=== PATIENT | female | born 1970 | race Caucasian/White ===

== ENCOUNTER 2017-06-19 08:52 | Inpatient (IN) | payer MEDICAID ==
[2017-06-19] VITALS (10 sets, daily range): BP systolic 89–103; BP diastolic 43–68; PULSE 89–104; RESP 16–20; TEMP 98.3–100.8; O2SAT 95–100
[~2017-06-19] VITALS: Ht 162.6 cm; Wt 69.3 kg
[~2017-06-19 08:52] MED LIST: PERC10TA27 PO
[2017-06-19] MEDS ORDERED: SODIUM CHLOR 0.9% 1000 ML INJ 1,000 ML IV SCH (09:23)
[2017-06-19] MEDS ORDERED: KETOROLAC TROMETHAMINE 30 MG/ML (IVP) VIAL IVP ONE (09:30)
[2017-06-19] MEDS ORDERED: SODIUM CHLORIDE 0.9% FLUSH 10 ML FLUSH IV FLUSH PRN ×2 (09:30→15:30)
[2017-06-19 09:44] LABS: AUTOMATED NEUTROPHIL # 21.3 TH/MM3 (1.8-7.7); BASOPHIL # 0.1 TH/MM3 (0-0.2); BASOPHIL % 0.4 % (0.0-2.0); HEMATOCRIT 38.4 % (35.0-46.0); LYMPH % 3.2 % (9.0-44.0); LYMPHOCYTE # 0.7 TH/MM3 (1.0-4.8); MEAN CELL VOLUME 84.7 FL (80.0-100.0); MEAN CORPUSCULAR HEMOGLOBIN 28.3 PG (27.0-34.0); MEAN CORPUSCULAR HGB CONC 33.4 % (32.0-36.0); MONO % 3.2 % (0.0-8.0); NEUT % 93.2 % (16.0-70.0); PLATELET COUNT 231 TH/MM3 (150-450); RED BLOOD COUNT 4.53 MIL/MM3 (4.00-5.30); WHITE BLOOD COUNT 22.8 TH/MM3 (4.0-11.0)
[2017-06-19 09:48] LABS: HEMO FLAGS DIFF FINAL
--- NOTE | 2017-06-19 09:48 | PD ---
HPI Chief Complaint: General Weakness Time Seen by Provider: 09:05 Travel History International Travel<30 days: No Contact w/Intl Traveler<30days: No Traveled to known affect area: No History of Present Illness HPI Patient is a 46-year-old female presents emergency Department with generalized fatigue, sharp stinging sensation throughout her entire body. She states it started this morning. She has been known to use amphetamines in the past but states she's been clean for 6 months. Denies any fever, she does also endorse some nausea and vomiting and diarrhea but denies any abdominal pain. States symptoms are moderate, gradually worsening, cannot identify any alleviating or exacerbating factors. PFSH Past Medical History Hx Anticoagulant Therapy: No Cancer: No Cardiovascular Problems: No Diabetes: No Diminished Hearing: No Endocrine: No Genitourinary: No Immune Disorder: No Musculoskeletal: No Neurologic: No Psychiatric: No Respiratory: No Immunizations Current: Yes Tetanus Vaccination: Unknown ?: Not Menopausal: Yes : 3 Para: 3 Past Surgical History Other Surgery: No Social History Alcohol Use: No Tobacco Use: Yes (1 PPD) Substance Use: Yes (METHAMPHETAMINES, BARBITUATES, AMPHETAMINES, PAIN PILLS) Allergies-Medications (Allergen,Severity, Reaction): Coded Allergies: No Known Allergies (Unverified , 06/10/16) Reported Meds & Prescriptions Reported Meds & Active Scripts Active Review of Systems Except as stated in HPI: all other systems reviewed are Neg Physical Exam Narrative GENERAL: Well-developed well-nourished, no obvious distress. SKIN: Focused skin assessment warm/dry. Decreased skin turgor. HEAD: Atraumatic. Normocephalic. EYES: Pupils equal and round. No scleral icterus. No injection or drainage. ENT: No nasal bleeding or discharge. Mucous membranes pink and dry. NECK: Trachea midline. No JVD. CARDIOVASCULAR: Regular rhythm with mild tachycardia.. No murmur appreciated. 2+ but equal pulses in all 4 extremities. RESPIRATORY: No accessory muscle use. Clear to auscultation. Breath sounds equal bilaterally. GASTROINTESTINAL: Abdomen soft, non-tender, nondistended. Hepatic and splenic margins not palpable. MUSCULOSKELETAL: No obvious deformities. No clubbing. No cyanosis. No edema. NEUROLOGICAL: Awake and alert. No obvious cranial nerve deficits. Motor grossly within normal limits. Normal speech. PSYCHIATRIC: Appropriate mood and affect; insight and judgment normal. Data Data Last Documented VS Vital Signs Date Time Temp Pulse Resp B/P (MAP) Pulse Ox O2 Delivery O2 Flow Rate FiO2 06/19/17 14:36 98 18 97/51 (66) 98 Room Air 06/19/17 13:58 98.8 Orders Orders Complete Blood Count With Diff (06/19/17 09:23) Comprehensive Metabolic Panel (06/19/17:23) Urinalysis - C+S If Indicated (06/19/17:23) Iv Access Insert/Monitor (06/19/17:23) Ecg Monitoring (06/19/17:23) Oximetry (06/19/17:23) Sodium Chlor 0.9% 1000 Ml Inj (Ns 1000 M (06/19/17 09:23) Sodium Chloride 0.9% Flush (Ns Flush) (06/19/17 09:30) Ketorolac Inj (Toradol Inj) (06/19/17 09:30) Ed Urine Pregnancytest Poc (06/19/17 09:23) Influenzae A/B Antigen (06/19/17 09:23) Chest, Single Ap (06/19/17 ) Cath For Specimen (06/19/17 11:20) Lactic Acid (06/19/17 11:30) Sodium Chlor 0.9% 1000 Ml Inj (Ns 1000 M (06/19/17 11:30) Creatine Kinase (Cpk) (06/19/17 11:48) Ct Abd/Pel W Iv Contrast(Rout) (06/19/17 ) Sodium Chlor 0.9% 1000 Ml Inj (Ns 1000 M (06/19/17 13:45) Iohexol 350 Inj (Omnipaque 350 Inj) (06/19/17 14:30) Ciprofloxacin 400 Mg Premix (Cipro 400 M (06/19/17 15:00) Metronidazole 500 Mg Inj (Flagyl 500 Mg (06/19/17 16:00) Blood Culture (06/19/17 15:02) Admit Order (Ed Use Only) (06/19/17 ) Labs Laboratory Tests Test 06/19/17 09:30 06/19/17 11:15 06/19/17 11:35 White Blood Count 22.8 TH/MM3 Red Blood Count 4.53 MIL/MM3 Hemoglobin 12.9 GM/DL Hematocrit 38.4 % Mean Corpuscular Volume 84.7 FL Mean Corpuscular Hemoglobin 28.3 PG Mean Corpuscular Hemoglobin Concent 33.4 % Red Cell Distribution Width 13.0 % Platelet Count 231 TH/MM3 Mean Platelet Volume 8.4 FL Neutrophils (%) (Auto) 93.2 % Lymphocytes (%) (Auto) 3.2 % Monocytes (%) (Auto) 3.2 % Eosinophils (%) (Auto) 0.0 % Basophils (%) (Auto) 0.4 % Neutrophils # (Auto) 21.3 TH/MM3 Lymphocytes # (Auto) 0.7 TH/MM3 Monocytes # (Auto) 0.7 TH/MM3 Eosinophils # (Auto) 0.0 TH/MM3 Basophils # (Auto) 0.1 TH/MM3 CBC Comment DIFF FINAL Differential Comment Blood Urea Nitrogen 16 MG/DL Creatinine 0.80 MG/DL Random Glucose 104 MG/DL Total Protein 6.5 GM/DL Albumin 3.3 GM/DL Calcium Level 8.0 MG/DL Alkaline Phosphatase 68 U/L Aspartate Amino Transf (AST/SGOT) 13 U/L Alanine Aminotransferase (ALT/SGPT) 23 U/L Total Bilirubin 0.5 MG/DL Sodium Level 134 MEQ/L Potassium Level 3.7 MEQ/L Chloride Level 101 MEQ/L Carbon Dioxide Level 25.5 MEQ/L Anion Gap 8 MEQ/L Estimat Glomerular Filtration Rate 78 ML/MIN Total Creatine Kinase 48 U/L Urine Collection Type CLEAN CATCH Urine Color YELLOW Urine Turbidity CLEAR Urine pH 5.5 Urine Specific [place] 1.007 Urine Protein NEG mg/dL Urine Glucose (UA) NEG mg/dL Urine Ketones NEG mg/dL Urine Occult Blood NEG Urine Nitrite NEG Urine Bilirubin NEG Urine Leukocyte Esterase TRACE Urine WBC 3-5 /hpf Urine Squamous Epithelial Cells > 8 /hpf Urine Bacteria OCC /hpf Microscopic Urinalysis Comment CULT NOT INDICATED Urine Collection Time 11:15 Lactic Acid Level 2.0 mmol/L MDM Medical Decision Making Medical Screen Exam Complete: Yes Emergency Medical Condition: Yes Differential Diagnosis Dehydration, acute kidney injury, electro-light abnormality, UTI, pneumonia, acute abdomen seems unlikely. Narrative Course Patient is a 46-year-old female roomed in the emergency department, mildly hypotensive appears dehydrated. Complains of generalized body aches. Given Toradol and normal saline, her labs show white count of 22,000, she's remained afebrile in the emergency part. I had been complaining of some nausea vomiting and diarrhea. Chest x-ray negative, UA negative. Decision was made to pursue CAT scan looking for source of white count at 20,000. She is given an additional liter fluid still with some persistent hypotension which is mild and she appears to be perfusing all of her tissues adequately. Her CAT scan does reveal some diffuse colitis. She was started on Cipro and Flagyl and discussed with Dr. Hair for admission for sepsis secondary to colitis. Diagnosis Primary Impression: Moderate dehydration Additional Impressions: Sepsis Colitis Admitting Information Admitting Physician Requests: Admit Scripts No Active Prescriptions or Reported Meds Condition: Dionisio Wesley MD Jun 19, 2017 09:48
[2017-06-19 09:54] LABS: BICARBONATE 25.5 MEQ/L (21.0-32.0); BLOOD UREA NITROGEN 16 MG/DL (7-18)
[2017-06-19 09:56] LABS: ALT (GPT) 23 U/L (10-53); ANION GAP 8 MEQ/L (5-15); CHLORIDE 101 MEQ/L (98-107); POTASSIUM 3.7 MEQ/L (3.5-5.1); SODIUM (NA) 134 MEQ/L (136-145)
[2017-06-19 09:57] LABS: AST (GOT) 13 U/L (15-37); GLOMERULAR FILTRATION RATE 78 ML/MIN (>89); TOTAL BILIRUBIN ADULT 0.5 MG/DL (0.2-1.0)
[2017-06-19 10:00] LABS: ALKALINE PHOSPHATASE 68 U/L (45-117)
--- NOTE | 2017-06-19 10:48 | RADRPT ---
EXAM DATE/TIME: 06/19/2017 10:21 [facility] COMPARISON: RIBS LEFT(W PA CXR MIN 3VWS), May 17, 2016, 5:02. INDICATIONS : Diarrhea and body aches. MEDICAL HISTORY : None. SURGICAL HISTORY : None. ENCOUNTER: Initial ACUITY: 1 day PAIN SCORE: 3/10 LOCATION: Bilateral chest FINDINGS: A single view of the chest demonstrates the lungs to be symmetrically aerated without evidence of mas s, infiltrate or effusion. The cardiomediastinal contours are unremarkable. Osseous structures are intact. CONCLUSION: 1. No acute cardiopulmonary disease. Wilmer Wong MD on June 19, 2017 at 10:46 Board Certified Radiologist. This report was verified electronically.
[2017-06-19 11:30] LABS: BLOOD, URINE NEG (NEG); GLUCOSE,URINE NEG (NEG); KETONE, URINE NEG (NEG); NITRITE,URINE NEG (NEG); PH, URINE 5.5 (5.0-8.5)
[2017-06-19] MEDS ORDERED: SODIUM CHLOR 0.9% 1000 ML INJ 1,000 ML IV ONE (11:30)
[2017-06-19 11:35] LABS: METHOD OF COLLECTION CLEAN CATCH
[2017-06-19 11:36] LABS: BACTERIA, URINE OCC /hpf; SQUAMOUS EPITHELIAL CELL URINE > 8 /hpf (0-5); URINE COLOR YELLOW (YELLW/STRAW)
[2017-06-19 13:14] LABS: COMMENT (UR) CULT NOT INDICATED; CULTURE IF INDICATED CULT NOT INDICATED
[2017-06-19] MEDS: SODIUM CHLOR 0.9% 1000 ML INJ 1,000 ML IV SCH ×2 (13:55→21:45)
--- NOTE | 2017-06-19 14:29 | RADRPT ---
EXAM DATE/TIME: 06/19/2017 14:05 [facility] COMPARISON: No previous studies available for comparison. INDICATIONS : Abdominal pain, diarrhea. IV CONTRAST: 96 cc Omnipaque 350 (iohexol) IV ORAL CONTRAST: No oral contrast ingested. RADIATION DOSE: 8.57 CTDIvol (mGy) MEDICAL HISTORY : Substance abuse.Attempted suiside x 2 SURGICAL HISTORY : Left Knee ENCOUNTER: Initial ACUITY: 1 day PAIN SCALE: 7/10 LOCATION: Bilateral abdominal. TECHNIQUE: Volumetric scanning of the abdomen and pelvis was performed. Using automated exposure control and ad justment of the mA and/or kV according to patient size, radiation dose was kept as low as reasonably achievable to obtain optimal diagnostic quality images. DICOM format image data is available electro nically for review and comparison. FINDINGS: LOWER LUNGS: Mild posterior basilar atelectasis LIVER: Homogeneous density without lesion. There is no dilation of the biliary tree. No calcified gallston es. SPLEEN: Normal size without lesion. PANCREAS: Within normal limits. KIDNEYS: Normal in size and shape. There is no mass, stone or hydronephrosis. ADRENAL GLANDS: Within normal limits. VASCULAR: There is no aortic aneurysm. BOWEL/MESENTERY: There is mild-moderate concentric wall thickening involving the colon, beginning in the proximal cantu sverse colon and continuing through to the rectum. The appearance would be consistent with diffuse co litis. There is mild fluid and gaseous distention of small bowel which may reflect adynamic ileus ABDOMINAL WALL: Within normal limits. RETROPERITONEUM: There is no lymphadenopathy. BLADDER: No wall thickening or mass. REPRODUCTIVE: Within normal limits. INGUINAL: There is no lymphadenopathy or hernia. MUSCULOSKELETAL: Within normal limits for patient age. CONCLUSION: Diffuse colitis. Mild ileus. Harish Louise MD on June 19, 2017 at 14:23 Board Certified Radiologist. This report was verified electronically.
[2017-06-19] MEDS ORDERED: IOHEXOL 350 MG/ML 10 ML VIAL (for RAD DIAG) IVCONTRAST ONE (14:30)
[2017-06-19] MEDS ORDERED: CIPROFLOXACIN 400 MG PREMIX 200 ML IV ONE (15:00)
[2017-06-19] MEDS ORDERED: metroNIDAZOLE 500 MG INJ 100 ML IV ONE (16:00)
[2017-06-19] MEDS ORDERED: ACETAMINOPHEN 325 MG TAB PO PRN (17:00)
[2017-06-19] MEDS ORDERED: KETOROLAC TROMETHAMINE 30 MG/ML (IVP) VIAL IV PUSH PRN (17:00)
--- NOTE | 2017-06-19 17:07 | HHI.HP ---
[facility] Unknown Admission Diagnosis Sepsis, Colitis, Ileus. Diagnoses: Chief Complaint: Abdominal pain Travel History International Travel<30 Days: No Contact w/Intl Traveler <30 Da: No Traveled to Known Affected Are: No History of Present Illness Patient very healthy 46-year-old female who admits about a week of abdominal discomfort and 3 days of worsening symptoms of malaise, pain and diarrhea. She notes no bloody diarrhea but had loose watery stools. There is no recent travel. The pain is severe. She tried taking Tylenol at home without relief. It has been improving here with IV Toradol. She did take antibiotics for the last couple of weeks for a tooth infection. She notes no recent hospitalizations and no other medications. Here she has been found to be hypotensive, tachycardic and with leukocytosis. Imaging confirms colitis and the patient's been admitted for severe colitis with sepsis. Review of Systems Constitutional: COMPLAINS OF: Fatigue, Fever (subjective), Weight loss, Change in appetite, DENIES: Diaphoretic episodes, Weight gain, Chills, Dizziness, Night Sweats Endocrine: DENIES: Abnorml menstrual pattern, Heat/cold intolerance, Polydipsia , Polyuria, Polyphagia Eyes: DENIES: Blurred vision, Diplopia, Eye inflammation, Eye pain, Vision loss , Photosensitivity, Double Vision Ears, nose, mouth, throat: DENIES: Tinnitus, Hearing loss, Vertigo, Nasal discharge, Oral lesions, Throat pain, Hoarseness, Ear Pain, Running Nose, Epistaxis, Sinus Pain, Toothache, Odynophagia Respiratory: DENIES: Apneas, Cough, Snoring, Wheezing, Hemoptysis, Sputum production, Shortness of breath Cardiovascular: DENIES: Chest pain, Palpitations, Syncope, Dyspnea on Exertion , PND, Lower Extremity Edema, Orthopnea, Claudication Gastrointestinal: COMPLAINS OF: Abdominal pain, Diarrhea, Nausea, Vomiting Genitourinary: DENIES: Abnormal vaginal bleeding, Dysmenorrhea, Dyspareunia, Sexual dysfunction, Urinary frequency, Urinary incontinence, Urgency, Hematuria , Dysuria, Nocturia, Vaginal discharge Musculoskeletal: DENIES: Joint pain, Muscle aches, Stiffness, Joint Swelling, Back pain, Neck pain Integumentary: DENIES: Abnormal pigmentation, Pruritus, Rash, Nail changes, Breast masses, Breast skin changes, Nipple discharge Hematologic/lymphatic: DENIES: Bruising, Lymphadenopathy Neurologic: DENIES: Abnormal gait, Headache, Localized weakness, Paresthesias, Seizures, Speech Problems, Tremor, Poor Balance Except as stated in HPI: all other systems reviewed are Neg Past Family Social History Past Medical History Denies Past Surgical History Denies Reported Medications Reviewed in the EMR Allergies: Coded Allergies: No Known Allergies (Unverified , 06/10/16) Active Ordered Medications Reviewed in the EMR Family History No family history of implanted bowel disease, mother is alive and well, father from melanoma, grandmother had colon cancer Social History History of polysubstance abuse but has been sober for some time No tobacco or alcohol 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 Physical Exam Vital Signs Vital Signs Date Time Temp Pulse Resp B/P (MAP) Pulse Ox O2 Delivery O2 Flow Rate FiO2 06/19/17 16:15 99.3 89 20 97/68 (78) 95 06/19/17 15:47 06/19/17 15:29 93 16 92/46 (61) 99 Room Air 06/19/17 14:36 98 18 97/51 (66) 98 Room Air 06/19/17 13:58 98.8 92 16 90/43 (59) 98 Room Air 06/19/17 13:00 92 18 91/49 (63) 99 Room Air 06/19/17 11:12 98 18 89/62 (71) 100 Room Air 06/19/17 09:43 98 06/19/17 09:01 104 16 98 Room Air 06/19/17 08:59 98.3 104 16 98/48 (65) 98 Physical Exam GENERAL: This is a well-nourished, well-developed patient, was calm but appears ill SKIN: No rashes, ecchymoses or lesions. Cool and dry. HEAD: Atraumatic. Normocephalic. No temporal or scalp tenderness. EYES: Pupils equal round and reactive. Extraocular motions intact. No scleral icterus. No injection or drainage. ENT: Nose without bleeding, purulent drainage or septal hematoma. Throat without erythema, tonsillar hypertrophy or exudate. Uvula midline. Airway patent. NECK: Trachea midline. No JVD or lymphadenopathy. Supple, nontender, no meningeal signs. CARDIOVASCULAR: Regular rate and rhythm without murmurs, gallops, or rubs. RESPIRATORY: Clear to auscultation. Breath sounds equal bilaterally. No wheezes , rales, or rhonchi. GASTROINTESTINAL: Abdomen soft, diffusely tender, diffusely distended, hyperactive bowel sounds. No hepato-splenomegaly, or palpable masses. No guarding. MUSCULOSKELETAL: Extremities without clubbing, cyanosis, or edema. No joint tenderness, effusion, or edema noted. No calf tenderness. Negative Homans sign bilaterally. NEUROLOGICAL: Awake and alert. Cranial nerves II through XII intact. Motor and sensory grossly within normal limits. Five out of 5 muscle strength in all muscle groups. Normal speech. Laboratory Laboratory Tests Test 06/19/17 09:30 06/19/17 11:15 06/19/17 11:35 White Blood Count 22.8 Red Blood Count 4.53 Hemoglobin 12.9 Hematocrit 38.4 Mean Corpuscular Volume 84.7 Mean Corpuscular Hemoglobin 28.3 Mean Corpuscular Hemoglobin Concent 33.4 Red Cell Distribution Width 13.0 Platelet Count 231 Mean Platelet Volume 8.4 Neutrophils (%) (Auto) 93.2 Lymphocytes (%) (Auto) 3.2 Monocytes (%) (Auto) 3.2 Eosinophils (%) (Auto) 0.0 Basophils (%) (Auto) 0.4 Neutrophils # (Auto) 21.3 Lymphocytes # (Auto) 0.7 Monocytes # (Auto) 0.7 Eosinophils # (Auto) 0.0 Basophils # (Auto) 0.1 CBC Comment DIFF FINAL Differential Comment Blood Urea Nitrogen 16 Creatinine 0.80 Random Glucose 104 Total Protein 6.5 Albumin 3.3 Calcium Level 8.0 Alkaline Phosphatase 68 Aspartate Amino Transf (AST/SGOT) 13 Alanine Aminotransferase (ALT/SGPT) 23 Total Bilirubin 0.5 Sodium Level 134 Potassium Level 3.7 Chloride Level 101 Carbon Dioxide Level 25.5 Anion Gap 8 Estimat Glomerular Filtration Rate 78 Total Creatine Kinase 48 Urine Collection Type CLEAN CATCH Urine Color YELLOW Urine Turbidity CLEAR Urine pH 5.5 Urine Specific [place] 1.007 Urine Protein NEG Urine Glucose (UA) NEG Urine Ketones NEG Urine Occult Blood NEG Urine Nitrite NEG Urine Bilirubin NEG Urine Leukocyte Esterase TRACE Urine WBC 3-5 Urine Squamous Epithelial Cells > 8 Urine Bacteria OCC Microscopic Urinalysis Comment CULT NOT INDICATED Urine Collection Time 11:15 Lactic Acid Level 2.0 Date/Time Source Procedure Growth Status 06/19/17 11:42 Blood Peripheral Aerobic Blood Culture Pending Received 06/19/17 11:42 Blood Peripheral Anaerobic Blood Culture Pending Received 06/19/17 09:34 Nasal Washing Influenza Types A,B Antigen (OLIVA) - Final NEGATIVE FOR FLU A AND B ANTIGEN.... Complete Result Diagram: 06/19/1730 06/19/1730 Imaging Last Impressions Chest X-Ray 06/19/17 0000 Signed Impressions: Service Date/Time: Monday, June 19, 2017 10:21 - CONCLUSION: 1. No acute cardiopulmonary disease. Wilmer Wong MD Abdomen/Pelvis CT 06/19/17 0000 Signed Impressions: Service Date/Time: Monday, June 19, 2017 14:05 - CONCLUSION: Diffuse colitis. Mild ileus. Harish Louise MD Septic Shock Reassessment Heart: Regular rate and rhythm Lungs: Clear Skin: Warm Caprini VTE Risk Assessment Caprini VTE Risk Assessment: Mod/High Risk (score >= 2) Caprini Risk Assessment Model Point Value = 1 Point Value = 2 Point Value = 3 Point Value = 5 Age 41-60 Minor surgery BMI > 25 kg/m2 Swollen legs Varicose veins or History of unexplained or recurrent spontaneous Oral contraceptives or hormone replacement Sepsis (< 1 month) Serious lung disease, including pneumonia (< 1 month) Abnormal pulmonary function Acute myocardial infarction Congestive heart failure (< 1 month) History of inflammatory bowel disease Medical patient at bed rest Age 61-74 Arthroscopic surgery Major open surgery (> 45 min) Laparoscopic surgery (> 45 min) Malignancy Confined to bed (> 72 hours) Immobilizing plaster cast Central venous access Age >= 75 History of VTE Family history of VTE Factor V Leiden Prothrombin [id number] Lupus anticoagulant Anticardiolipin antibodies Elevated serum homocysteine Heparin-induced thrombocytopenia Other congenital or acquired thrombophilia Stroke (< 1 month) Elective arthroplasty Hip, pelvis, or leg fracture Acute spinal cord injury (< 1 month) Prophylaxis Regimen Total Risk Factor Score Risk Level Prophylaxis Regimen 0-1 Low Early ambulation 2 Moderate Order ONE of the following: *Sequential Compression Device (SCD) *Heparin 5000 units SQ BID 3-4 Higher Order ONE of the following medications: *Heparin 5000 units SQ TID *Enoxaparin/Lovenox 40 mg SQ daily (WT < 150 kg, CrCl > 30 mL/min) *Enoxaparin/Lovenox 30 mg SQ daily (WT < 150 kg, CrCl > 10-29 mL/min) *Enoxaparin/Lovenox 30 mg SQ BID (WT < 150 kg, CrCl > 30 mL/min) AND/OR *Sequential Compression Device (SCD) 5 or more Highest Order ONE of the following medications: *Heparin 5000 units SQ TID (Preferred with Epidurals) *Enoxaparin/Lovenox 40 mg SQ daily (WT < 150 kg, CrCl > 30 mL/min) *Enoxaparin/Lovenox 30 mg SQ daily (WT < 150 kg, CrCl > 10-29 mL/min) *Enoxaparin/Lovenox 30 mg SQ BID (WT < 150 kg, CrCl > 30 mL/min) AND *Sequential Compression Device (SCD) Assessment and Plan Problem List: (1) Colitis ICD Code: K52.9 - Noninfective gastroenteritis and colitis, unspecified Plan: With sepsis (elevated white cell count, hypotension, elevated heart rate) Empiric Flagyl, Cipro, add oral vancomycin due to severity and high suspicion for C. difficile C. 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 In the case of services not specified as inpatient-only, they are appropriately provided as inpatient services in accordance with the 2-midnight benchmark. Estimated LOS (days): 3 3 days is the estimated time the patient will need to remain in the hospital, assuming treatment plan goals are met and no additional complications. Post-Hospital Plan: Shannon Jones MD Jun 19, 2017 17:07
[2017-06-19] MEDS ORDERED: ONDANSETRON HCL 4 MG/2 ML VIAL IV PUSH PRN (17:15)
[2017-06-19] MEDS: ENOXAPARIN SODIUM 40 MG/0.4 ML SYRINGE SQ SCH (17:28)
[2017-06-19] MEDS: VANCOMYCIN 500 MG VIAL (FOR ORAL USE ONLY) PO SCH ×2 (17:30→20:57)
[2017-06-19] MEDS: MORPHINE SULFATE 2 MG/ML INJ IV PUSH PRN (17:36)
[2017-06-19] MEDS: SODIUM CHLORIDE 0.9% FLUSH 10 ML FLUSH IV FLUSH SCH (20:58)
[2017-06-20] MEDS: MORPHINE SULFATE 2 MG/ML INJ IV PUSH PRN ×2 (02:58→09:44)
[2017-06-20 03:22] VITALS: BP 105/70; PULSE 88; RESP 18; TEMP 98.7; O2SAT 97
[2017-06-20] MEDS: SODIUM CHLOR 0.9% 1000 ML INJ 1,000 ML IV SCH ×2 (05:34→15:50)
[2017-06-20 07:20] LABS: POTASSIUM 3.7 MEQ/L (3.5-5.1)
[2017-06-20 07:23] LABS: AUTOMATED NEUTROPHIL # 9.6 TH/MM3 (1.8-7.7); BASOPHIL % 0.1 % (0.0-2.0); EOSINOPHIL % 0.1 % (0.0-4.0); HEMATOCRIT 35.3 % (35.0-46.0); HEMO FLAGS DIFF FINAL; LYMPHOCYTE # 1.2 TH/MM3 (1.0-4.8); MEAN CELL VOLUME 83.4 FL (80.0-100.0); MEAN CORPUSCULAR HEMOGLOBIN 27.5 PG (27.0-34.0); MONO % 3.2 % (0.0-8.0); NEUT % 85.6 % (16.0-70.0); PLATELET COUNT 196 TH/MM3 (150-450); RED BLOOD COUNT 4.23 MIL/MM3 (4.00-5.30); RED CELL DISTRIBUTION WIDTH 13.3 % (11.6-17.2); WHITE BLOOD COUNT 11.2 TH/MM3 (4.0-11.0)
[2017-06-20 07:24] LABS: BICARBONATE 24.7 MEQ/L (21.0-32.0)
[2017-06-20] MEDS: VANCOMYCIN 500 MG VIAL (FOR ORAL USE ONLY) PO SCH ×4 (09:50→21:03)
[2017-06-20] MEDS: SODIUM CHLORIDE 0.9% FLUSH 10 ML FLUSH IV FLUSH SCH ×2 (09:55→21:04)
--- NOTE | 2017-06-20 10:53 | HHI.PR ---
Subjective Remarks Patient seen and evaluated follow-up for colitis. Tolerated antibiotics. Had some loose stools which are pending for C. difficile. Complaining of abdominal pain and leg pain today. Ambulatory without difficulty. Abdominal discomfort is improved today Objective Vitals Vital Signs Date Time Temp Pulse Resp B/P (MAP) Pulse Ox O2 Delivery O2 Flow Rate FiO2 06/20/17 03:22 98.7 88 18 105/70 (82) 97 06/20/17 03:03 16 06/19/17 23:58 98.3 98 16 100/62 (75) 96 06/19/17 23:57 16 06/19/17 21:19 100.8 100 16 103/65 (78) 97 06/19/17 16:15 99.3 89 20 97/68 (78) 95 06/19/17 15:47 06/19/17 15:29 93 16 92/46 (61) 99 Room Air 06/19/17 14:36 98 18 97/51 (66) 98 Room Air 06/19/17 13:58 98.8 92 16 90/43 (59) 98 Room Air 06/19/17 13:00 92 18 91/49 (63) 99 Room Air 06/19/17 11:12 98 18 89/62 (71) 100 Room Air I/O 06/19/17 06/19/17 06/19/17 06/20/17 06/20/17 06/20/17 07:00 15:00 23:00 07:00 15:00 23:00 Intake Total 3000 ml 433 ml 875 ml Balance 3000 ml 433 ml 875 ml Intake IV Total 3000 ml 433 ml 875 ml Result Diagram: 06/20/17 0649 06/20/17 0649 Imaging Last Impressions Chest X-Ray 06/19/17 0000 Signed Impressions: Service Date/Time: Monday, June 19, 2017 10:21 - CONCLUSION: 1. No acute cardiopulmonary disease. Wilmer Wong MD Abdomen/Pelvis CT 06/19/17 0000 Signed Impressions: Service Date/Time: Monday, June 19, 2017 14:05 - CONCLUSION: Diffuse colitis. Mild ileus. Harish Louise MD Objective Remarks GENERAL: This is a well-nourished, well-developed patient, in no apparent distress. CARDIOVASCULAR: Regular rate and rhythm without murmurs, gallops, or rubs. RESPIRATORY: Clear to auscultation. Breath sounds equal bilaterally. No wheezes , rales, or rhonchi. GASTROINTESTINAL: Abdomen soft, moderately tender. Normal active bowel sounds MUSCULOSKELETAL: Extremities without clubbing, cyanosis, or edema. NEURO: Alert & Oriented x4 to person, place, time, situation. Moves all ext x4 A/P Problem List: (1) Colitis ICD Code: K52.9 - Noninfective gastroenteritis and colitis, unspecified Plan: With improving sepsis (improving white cell count, hypotension, and heart rate) Empiric Flagyl, Cipro, add oral vancomycin due to severity and high suspicion for C. difficile C. difficile pending (recent antibiotics for dental abscess) clear liquids IV narcotics for breakthrough pain IV hydration GI eval pending (2) Myalgia ICD Code: M79.1 - Myalgia Plan: cpk, k thermia no clinical evidence of dvt Shannon Hair MD Jun 20, 2017 10:53
[2017-06-20 13:45] LABS: C. DIFF EPI 027 PRESUMPTIVE NEGATIVE (NEGATIVE)
[2017-06-20] MEDS: HYDROmorphone HCL PF 2 MG/ML VIAL IVS PRN ×2 (15:57→21:13)
[2017-06-20] MEDS: ENOXAPARIN SODIUM 40 MG/0.4 ML SYRINGE SQ SCH (19:00)
--- NOTE | 2017-06-20 19:28 | MB ---
cc: LEIGH MACHADO M.D. DATE OF CONSULTATION: 06/20/2017. REASON FOR CONSULTATION: Diarrhea. Abdominal pain. Colitis. REFERRING PHYSICIAN: Dr. Hair. DATE OF : 1970. HISTORY OF PRESENT ILLNESS: Ms. Day is a very pleasant 46-year-old lady with no major medical problems. She came to the emergency room with complaints of severe abdominal pain, discomfort for three days getting worse along with diarrhea. She denies any blood in the stool. She denies any vomiting. She does have some nausea. The patient did take antibiotics a few weeks ago for a tooth infection. There is no history of recent travel or sick contacts. She does have constipation. She moves her bowels every couple of weeks or as per . Denies any previous episodes of diarrhea. She has never had an endoscopy or colonoscopy. PAST MEDICAL HISTORY: None. PAST SURGICAL HISTORY: None. ALLERGIES: NO KNOWN ALLERGIES. FAMILY HISTORY: No family history of colon cancer or any other GI pathology. The father had melanoma. The grandmother had colon cancer. SOCIAL HISTORY: History of polysubstance abuse, sober at this time. Denies any smoking or alcohol use. MEDICATIONS: 1. Hydromorphone. 2. Vancomycin. 3. Lovenox. 4. Zofran. 5. Tylenol. REVIEW OF SYSTEMS: CONSTITUTIONAL: She denies any weight loss or weight gain. She does have malaise. Low-grade fever. HEAD, EYES, EARS, NOSE, THROAT: No alteration in baseline hearing or visual acuity. PULMONARY: Denies any chest pain or shortness of breath. GASTROINTESTINAL: As above. GENITOURINARY: Denies any dysuria or hematuria. HEMATOLOGICAL: Denies any history of anemia or bleeding disorder. PHYSICAL EXAMINATION: GENERAL: On clinical examination, she is sitting in bed and looks slightly dehydrated and in no acute distress. VITAL SIGNS: Her T-max today was 100.8, pulse 88, blood pressure is 105/70. She was slightly hypotensive when she came into the emergency room at 89/62. HEAD, EYES, EARS, NOSE, THROAT: Pupils equal, round and reactive to light and accommodation. NECK: No jugular venous distention. No lymphadenopathy. CHEST: The lungs are clear to auscultation and palpation. CARDIOVASCULAR: S1-S2 no murmur. ABDOMEN: Abdomen soft and mildly distended and tender. Bowel sounds are present. BULBS FARMWORKER: Awake, alert and oriented times three. No focal signs identified. She does admit to feeling better today. LABORATORY DATA: Her white count went from 22,000 to 11.2. Hemoglobin 12.9 and went to 11.6. Her comprehensive metabolic panel is essentially normal. Her stool was positive for C. Difficile. IMAGING STUDIES: The patient had a CT of the abdomen and pelvis on admission which showed mild to moderate wall thickening involving the colon beginning in the proximal transverse and continuing to the rectum most likely diffuse colitis and mild ileus. IMPRESSION: Ms. Day is a pleasant 46-year-old lady admitted with diarrhea and abdominal pain with CT suggesting colitis. Stool is positive for C. Difficile colitis. RECOMMENDATIONS: 1. Clear liquid diet. 2. Continue Vancomycin. 3. IV fluids. 4. Supportive care. 5. If stable, may be discharged in one to two days. 6. Advance diet to soft. 7. Will need a colonoscopy in six to eight weeks once the infection resolves. If worsening, consider adding Flagyl IV or p.o. and consulting infectious disease. I would like to thank Dr. Hair for referring her to our office for consultation. Leigh Machado MD BSB/JCC /6:52 PM /7:12 PM
[2017-06-20 20:38] VITALS: BP 98/58; PULSE 79; RESP 12; TEMP 98.6; O2SAT 96
[2017-06-21 00:08] VITALS: BP 97/62; PULSE 90; RESP 12; TEMP 98.5; O2SAT 92
[2017-06-21] MEDS: SODIUM CHLOR 0.9% 1000 ML INJ 1,000 ML IV SCH ×2 (01:00→05:42)
[2017-06-21] MEDS: HYDROmorphone HCL PF 2 MG/ML VIAL IVS PRN ×3 (01:30→11:23)
[2017-06-21 04:00] VITALS: RESP 16
[2017-06-21] MEDS ORDERED: ACETAMINOPHEN/HYDROcodone 325 MG/7.5 MG TAB PO PRN (07:45)
[2017-06-21 08:00] VITALS: BP 105/69; PULSE 87; RESP 16; TEMP 98.5; O2SAT 97
--- NOTE | 2017-06-21 08:17 | HHI.PR ---
Subjective Remarks Patient seen and evaluated in follow-up for C. difficile colitis. Doing well with oral vancomycin. Pain is improved. Patient with some swelling and edema after aggressive IV hydration. Objective Vitals Vital Signs Date Time Temp Pulse Resp B/P (MAP) Pulse Ox O2 Delivery O2 Flow Rate FiO2 06/21/17 04:00 16 06/21/17 00:08 98.5 90 12 97/62 (74) 92 06/20/17 20:38 98.6 79 12 98/58 (71) 96 I/O 06/20/17 06/20/17 06/20/17 06/21/17 06/21/17 06/21/17 07:00 15:00 23:00 07:00 15:00 23:00 Intake Total 875 ml 1000 ml 1735 ml Balance 875 ml 1000 ml 1735 ml Intake Oral 360 ml IV Total 875 ml 1000 ml 1375 ml # Voids 0 2 Result Diagram: 06/20/17 0649 06/20/17 0649 Objective Remarks GENERAL: This is a well-nourished, well-developed patient, in no apparent distress. CARDIOVASCULAR: Regular rate and rhythm without murmurs, gallops, or rubs. RESPIRATORY: Clear to auscultation. Breath sounds equal bilaterally. No wheezes , rales, or rhonchi. GASTROINTESTINAL: Abdomen soft, moderately tender. Normal active bowel sounds MUSCULOSKELETAL: Extremities without clubbing, cyanosis, +1 edema. NEURO: Alert & Oriented x4 to person, place, time, situation. Moves all ext x4 A/P Problem List: (1) Colitis ICD Code: K52.9 - Noninfective gastroenteritis and colitis, unspecified Plan: With improving sepsis (improving white cell count, hypotension, and heart rate) Continue oral vancomycin due to severity of C. difficile GI consult appreciated Advance IV/po narcotics for breakthrough pain (2) Myalgia ICD Code: M79.1 - Myalgia Plan: Improved Discharge Planning Likely discharge in Shannon Greenberg MD Jun 21, 2017 07:33
[2017-06-21] MEDS: VANCOMYCIN 500 MG VIAL (FOR ORAL USE ONLY) PO SCH ×4 (09:14→20:40)
[2017-06-21] MEDS: SODIUM CHLORIDE 0.9% FLUSH 10 ML FLUSH IV FLUSH SCH ×2 (09:14→20:40)
[2017-06-21 12:00] VITALS: BP 90/53; PULSE 96; RESP 16; TEMP 98.5; O2SAT 97
[2017-06-21 16:00] VITALS: BP 92/60; PULSE 92; RESP 18; TEMP 98.4; O2SAT 96
--- NOTE | 2017-06-21 16:59 | HHI.GIFU ---
GI Follow-up Note Consult Follow-up Subjective: Patient laying in bed comfortably, still complaining of abdominal pain, diarrhea .No nausea, vomiting, tolerated diet well .Had 8 loose bowel movements so far Objective: PHYSICAL EXAMINATION: Vitals signs stable No fever Vital Signs Date Time Temp Pulse Resp B/P (MAP) Pulse Ox O2 Delivery O2 Flow Rate FiO2 06/21/17 12:00 98.5 96 16 90/53 (65) 97 06/21/17 11:53 18 HEENT: Pupils round and reactive to light; normocephalic; atraumatic; no jaundice. Throat is clear. NECK: Neck is supple, no JVD, no lymphadenopathy. CHEST: Chest is clear to auscultation and percussion. CARDIAC: Regular rate and rhythm with no murmur gallop or rubs. ABDOMEN: Soft, nondistended, mild tenderness lower abdomen ; no hepatosplenomegaly; bowel sounds are present in all four quadrants. EXTREMITIES: No clubbing, cyanosis, or edema. SKIN: Normal; no rash; no jaundice. RAPID TRANSIT OPERATOR: No focal deficits; alert and oriented times three. Available Data (labs, X- Rays, Procedues) : Laboratory Tests Test 06/20/17 06:49 06/20/17 09:45 White Blood Count 11.2 TH/MM3 Red Blood Count 4.23 MIL/MM3 Hemoglobin 11.6 GM/DL Hematocrit 35.3 % Mean Corpuscular Volume 83.4 FL Mean Corpuscular Hemoglobin 27.5 PG Mean Corpuscular Hemoglobin Concent 33.0 % Red Cell Distribution Width 13.3 % Platelet Count 196 TH/MM3 Mean Platelet Volume 8.5 FL Neutrophils (%) (Auto) 85.6 % Lymphocytes (%) (Auto) 11.0 % Monocytes (%) (Auto) 3.2 % Eosinophils (%) (Auto) 0.1 % Basophils (%) (Auto) 0.1 % Neutrophils # (Auto) 9.6 TH/MM3 Lymphocytes # (Auto) 1.2 TH/MM3 Monocytes # (Auto) 0.4 TH/MM3 Eosinophils # (Auto) 0.0 TH/MM3 Basophils # (Auto) 0.0 TH/MM3 CBC Comment DIFF FINAL Differential Comment Blood Urea Nitrogen 12 MG/DL Creatinine 0.69 MG/DL Random Glucose 87 MG/DL Calcium Level 7.8 MG/DL Sodium Level 136 MEQ/L Potassium Level 3.7 MEQ/L Chloride Level 104 MEQ/L Carbon Dioxide Level 24.7 MEQ/L Anion Gap 7 MEQ/L Estimat Glomerular Filtration Rate 92 ML/MIN Total Creatine Kinase 39 U/L Stool C. difficile Toxin (PCR) POSITIVE Stl C. difficile Toxin Epiderm 027 PRESUMPTIVE NEGATIVE ASSESSMENT/PLAN: diarrhea , abdominal pain secondary c diff colitis c diff colitis most likely triggered by recent antibiotic use Recommendations IVF continue Vancomycin advance diet as tolerated supportive care d/c in 1-2 days depending on clinical status will need colonoscopy op once infection resolved It was a pleasure seeing Kristin Day. Thank you for this consult. Entered by: Leigh De La Vega MD Jun 21, 2017 16:59
[2017-06-21] MEDS: ENOXAPARIN SODIUM 40 MG/0.4 ML SYRINGE SQ SCH (17:33)
[2017-06-21 20:08] VITALS: BP 95/59; PULSE 76; RESP 12; TEMP 98.6; O2SAT 96
[2017-06-22] MEDS: VANCOMYCIN 500 MG VIAL (FOR ORAL USE ONLY) PO SCH (08:34)
[2017-06-22] MEDS: SODIUM CHLORIDE 0.9% FLUSH 10 ML FLUSH IV FLUSH SCH (08:35)
[2017-06-22 09:11] VITALS: BP 89/67; PULSE 77; RESP 18; TEMP 96.9; O2SAT 98
[2017-06-22] MEDS ORDERED: ACET1TAB86 PO (10:12)
[2017-06-22] MEDS ORDERED: VANC500I3 PO (10:12)
--- NOTE | 2017-06-22 10:13 | HHI.PR ---
Subjective Remarks Patient seen and evaluated in follow-up for C. difficile colitis. Overall improved. Blood pressure is running a bit low which patient says is normal for her. Edema is improved. Bowel movements. Minimal pain Objective Vitals Vital Signs Date Time Temp Pulse Resp B/P (MAP) Pulse Ox O2 Delivery O2 Flow Rate FiO2 06/22/17 09:11 96.9 77 18 89/67 (74) 98 06/22/17 00:02 06/21/17 20:08 98.6 76 12 95/59 (71) 96 06/21/17 18:34 18 06/21/17 16:00 98.4 92 18 92/60 (71) 96 06/21/17 12:00 98.5 96 16 90/53 (65) 97 06/21/17 11:53 18 I/O 06/21/17 06/21/17 06/21/17 06/22/17 06/22/17 06/22/17 07:00 15:00 23:00 07:00 15:00 23:00 Intake Total 1735 ml 375 ml 960 ml Output Total 1 ml Balance 1735 ml 374 ml 960 ml Intake Oral 360 ml 250 ml 960 ml IV Total 1375 ml 125 ml Output Stool Total 1 ml # Voids 2 1 4 # Bowel Movements 4 Result Diagram: 06/20/17 0649 06/20/17 0649 Objective Remarks GENERAL: This is a well-nourished, well-developed patient, in no apparent distress. CARDIOVASCULAR: Regular rate and rhythm without murmurs, gallops, or rubs. RESPIRATORY: Clear to auscultation. Breath sounds equal bilaterally. No wheezes , rales, or rhonchi. GASTROINTESTINAL: Abdomen soft, moderately tender. Normal active bowel sounds MUSCULOSKELETAL: Extremities without clubbing, cyanosis, +1 edema. NEURO: Alert & Oriented x4 to person, place, time, situation. Moves all ext x4 A/P Problem List: (1) Colitis ICD Code: K52.9 - Noninfective gastroenteritis and colitis, unspecified Plan: Continue by mouth vancomycin Tylenol For pain Discharge Planning Discharge home if remains stable Shannon Hair MD Jun 22, 2017 10:13
--- NOTE | 2017-06-22 10:14 | HHI.DCPOC ---
Discharge Care Plan Diagnosis: (1) C. difficile colitis Goals to Promote Your Health * To prevent worsening of your condition and complications * To maintain your health at the optimal level Directions to Meet Your Goals Take your medications as prescribed Follow your dietary instruction Follow activity as directed Keep your appointments as scheduled Take your immunizations and boosters as scheduled If your symptoms worsen call your PCP, if no PCP go to Urgent Care Center or Emergency Room Smoking is Dangerous to Your Health. Avoid second hand smoke Call the 24-hour hour crisis hotline for domestic abuse at Shannon Hair MD Jun 22, 2017 10:14
[2017-06-22 12:00] VITALS: BP 87/60; PULSE 77; RESP 18; TEMP 98; O2SAT 97
== END 2017-06-22 13:33 | disposition home or self-care (01) | DRG 372 ==
LOC: PHED 08:52 → PHEDA 15:03 → PH3B 16:00
PROVIDERS: ADMIT Hospitalist; ATTEND Hospitalist
DX: A04.72 Enterocolitis due to Clostridium difficile, not specified as recurrent (principal); K56.7 Ileus, unspecified; E86.0 Dehydration; Z72.0 Tobacco use; Z80.0 Family history of malignant neoplasm of digestive organs; K04.7 Periapical abscess without sinus
CPT/HCPCS: 71010; 74177; 80048; 80053; 81001; 82550; 83605; 84703; 85025; 87040; 87493; 87804; 96361; 96374; J0744; J1170; J1650; J1885; J2270; J7030; Q9967